=== PATIENT | male | born 1955 | race Caucasian/White ===

== ENCOUNTER 2017-03-10 22:03 | Emergency (ER) | payer BC ==
[~2017-03-10] VITALS: Ht 165.1 cm; Wt 68.2 kg
[~2017-03-10 22:03] MED LIST: ASCA500 PO; ASPI81TA21 PO; CALC600T14 PO; CHOL100027 PO; COENZYME PO; FISHOIL PO; GLUC750C4 PO; MULTTAB58 PO; SENN-63 PO; [UNRECOGNIZED DRUG - OTHER] PO; alpha-lipoic acid PO
[2017-03-10 22:09] VITALS: TEMP 36.6; Ht 165.1 cm; Wt 68.2 kg
--- NOTE | 2017-03-10 23:06 | EMERGENCY ROOM VISIT NOTE ---
History Report prepared by Yayo: Mo Pedersen Under the Supervision of: Dr. Angelica Joyner D.O. First contact with patient: 22:14 Chief Complaint: HEAD INJURY (MINOR) Stated Complaint: HEAD INJURY/LACERATION History of Present Illness The patient is a 61 year old male who presents to the Emergency Room with complaints of a sudden syncopal episode that occurred prior to arrival. He rates his pain as a 1/10 in severity. The patient states that he was in the hot tub and got out to dry off. He states that he felt lightheaded while he was putting a towel on, which eventually caused him to experience a syncopal episode. The patient states that he hit his head on concrete. He states that the episode was short and he was able to understand where he was following the incident. The patient reports that he relaxed and drank a couple glasses of water following the episode. The patient states that he has experienced symptoms similar to his current situation. He states has history of low blood pressure, which caused his history of syncopal episodes. He states that his last tetanus shot was three years ago. The patient states that his last blood pressure was 112/64. The patient denies seizure like activities, numbness or tingling in his legs, nausea, headache, leg injury, hip injury, medication change, and unusual activities. Patient had no symptoms while sitting in the hot tub not recently ill. Denies at any other pain or trauma secondary to the event. Patient feels back to his normal state of health now with the exception of small amount of pain around the laceration on his head. Source of History: patient Onset: prior to arrival Position: other (global) Symptom Intensity: 1/10 Quality: other (LOC) Timing: other (sudden) Associated Symptoms: No headache, No nausea, No numbness Review of Systems See HPI for pertinent positives & negatives. A total of 10 systems reviewed and were otherwise negative. Past Medical & Surgical Surgical Problems: (1) H/O cervical spine surgery (2) H/O prostatectomy Family History Diabetes mellitus FHx: cancer Social History Smoking Status: Never Smoker Alcohol Use: occasionally Drug Use: none Marital Status: Housing Status: lives with family Occupation Status: employed Current/Historical Medications Scheduled Ascorbic Acid (Ascorbic Acid), 1,500 MG PO DAILY Aspirin Enteric Coated (Ecotrin Or Generic), 81 MG PO DAILY Calcium Carbonate (Calcium), 600 MG PO DAILY Cholecalciferol (Vitamin D 1000 Unit), 1,000 INTER.UNIT PO DAILY Coenzyme Q10 (Ubidecarenone) (Coq-10), 200 MG PO DAILY Bpribkprkqn-Exesuoszvqy-Bru C- (Glucosamine Chondroitin), 2 TABS PO DAILY Multiple Vitamin (Multivitamin), 1 TAB PO DAILY [alpha-lipoic acid], 50 MG PO DAILY Allergies Coded Allergies: No Known Allergies (Unverified , 03/11/17) Physical Exam Vital Signs Date Time Temp Pulse Resp B/P (MAP) Pulse Ox O2 Delivery O2 Flow Rate FiO2 03/11/17 00:19 78 16 118/63 98 03/10/17 23:54 74 16 123/71 99 Room Air 03/10/17 22:09 36.6 76 18 121/80 98 Room Air Physical Exam GENERAL: alert, well appearing, well nourished, no distress, non-toxic EYE EXAM: normal conjunctiva, PERRL and EOM's grossly intact OROPHARYNX: no exudate, no erythema, lips, buccal mucosa, and tongue normal and mucous membranes are moist HEAD: Stellate laceration to the superior occipital region. Nontender. No hemotympanum. NECK: supple, no nuchal rigidity, no adenopathy, non-tender. No signs of trauma. LUNGS: Clear to auscultation. Normal chest wall mechanics HEART: no murmurs, S1 normal and S2 normal ABDOMEN: No signs of trauma. abdomen soft, non-tender, normo-active bowel sounds , no masses, no rebound or guarding. BACK: No signs of trauma. Back is symmetrical on inspection and there is no deformity, no stepoff, no midline tenderness, no CVA tenderness. PELVIS: stable. SKIN: no rashes and no bruising UPPER EXTREMITIES: upper extremities are grossly normal. LOWER EXTREMITIES: No pitting edema. NEURO EXAM: Normal sensorium, cranial nerves II-XII grossly intact, normal speech, no gross weakness of arms, no gross weakness of legs. Gross sensation intact. Medical Decision & Procedures ER Provider Diagnostic Interpretation: CT:Per my review, radiologist interpretation. CT C SPINE No acute fracture or malalignment. Surgical and degenerative. Old C2 fracture. Intact fusion hardware in the upper cervical spine. Radiologist: Heather Loomis M.D. CT HEAD: No intracranial hemorrhage or skull fracture. Fixation hardware in the upper cervical spine. Radiologist: Heather Loomis M.D. Medications Administered Medications (Trade) Dose Ordered Sig/Kim Route Start Time Stop Time Status Last Admin Dose Admin Lidocaine/ Epinephrine (Xylocaine/Epine 1% Inj) 20 ml STK-MED ONCE .ROUTE 03/10/17 23:47 03/10/17 23:48 DC 03/10/17 23:49 20 ML Procedure Location: upper occipital region Total length: 6 cm Complexity: stellate Verbal consent was obtained after the risks and benefits were explained, including but not limited to bleeding, scarring, infection, pain, and bone/joint /nerve damage. At this time, the risks of the procedure are less than the risks of NOT performing the procedure. A time out was taken and the correct patient and site identified. The skin was prepped with betadine. The target area was anesthetized with 5 ml of 1% lidocaine without epinephrine. Copious irrigation was performed using sterile normal saline. The skin was re-prepped with betadine and a sterile field set. The wound was explored for foreign bodies and none found. Examination revealed no injury to deep structures such as tendons, bone, or significant blood vessels. Debridement was not performed. The wound edges were approximated using 6 robbi. Hemostasis and excellent approximation was achieved. Antibacterial ointment and a sterile dressing applied. Detailed wound care instructions and signs and symptoms of infection reviewed with the patient. No complications and the patient tolerated the procedure well. ECG Indication: syncope Rate (beats per minute): 62 Rhythm: normal sinus Findings: no acute ischemic change, other (Normal axis, normal intervals, erratic baseline) ED Course 2245: The patient was evaluated in room A10. A complete history and physical exam was performed. 2347: Ordered Lidocaine/Epinephrine 20 ml IV. 2348: I performed a laceration repair. See procedure notes for further detail. 2355: Upon reevaluation, the patient is feeling better. I discussed the findings and the treatment plan with the patient. He verbalizes agreement and understanding. The patient was discharged home. Medical Decision The differential diagnosis includes etiologies such as vasovagal event, infection, hypoglycemia, electrolyte abnormalities, cardiac sources, intracerebral event, toxicologic, neurologic, as well as others were entertained. Patient likely with vasovagal event secondary to warm hot tub water immediately standing up trying to get out of the tub. Isolated head injury, no other evidence of trauma noted, imaging reassuring. Patient well-appearing here ambulatory with steady gait, vital signs stable. Doubt additional occult traumatic injury, doubt dysrhythmia, ACS, dissection, PE, tamponade, bacteremia/ sepsis, AAA, CVA, subarachnoid hemorrhage. Medication Reconcilliation Current Medication List: was personally reviewed by me Blood Pressure Screening Patient's blood pressure: Elevated blood pressure Blood pressure disposition: Elevated BP felt to be situational Impression Primary Impression: Closed head injury Additional Impressions: Syncope Laceration Scribe Attestation The scribe's documentation has been prepared under my direction and personally reviewed by me in its entirety. I confirm that the note above accurately reflects all work, treatment, procedures, and medical decision making performed by me. Departure Information Dispostion Home / Self-Care Referrals Leonidas Romero M.D. (MEDICAL) (PCP) Forms HOME CARE DOCUMENTATION FORM, IMPORTANT VISIT INFORMATION Patient Instructions My [facility] Tempronics Additional Instructions Please have the robbi removed in 7 days. Please drink plenty of water and be cautious when getting out of the hot tub too quickly. Please eat regularly. If you have any worsening headaches, dizziness, vision changes, vomiting, fevers , redness/drainage from the wound, neck/back pain, or you have any other new or concerning symptoms, please return to the emergency room. Problem Qualifiers Primary Impression: Closed head injury Encounter type: initial encounter Qualified Codes: S09.90XA - Unspecified injury of head, initial encounter Additional Impressions: Syncope Syncope type: vasovagal syncope Qualified Codes: R55 - Syncope and collapse
[2017-03-10] MEDS ORDERED: LIDOCAINE/EPINEPHRINE 1% 20 ML VIAL ONE (23:47)
[2017-03-11] MEDS ORDERED: ASCO500T16 PO (00:15)
[2017-03-11] MEDS ORDERED: CALC-393 PO (00:17)
[2017-03-11 00:19] VITALS: BP 118/63; PULSE 78; O2SAT 98
[2017-03-11] MEDS ORDERED: GLUCTAB7 PO (00:19)
[2017-03-11] MEDS ORDERED: COEN100C11 PO (00:20)
--- NOTE | 2017-03-11 06:40 | DIAGNOSTIC IMAGING REPORT ---
CT OF THE CERVICAL SPINE CLINICAL HISTORY: Neck pain status post trauma COMPARISON STUDY: 09/06/2010 CT DOSE: TECHNIQUE: CT scan of the cervical spine was performed from the skull base to the thoracic inlet. Images are reviewed in the axial, sagittal, and coronal planes. IV contrast was not administered for this examination. A dose lowering technique was utilized adhering to the principles of ALARA. FINDINGS: The visualized portions of the lung apices reveal no evidence of pneumothorax. The prevertebral soft tissues are normal. No acute fractures or traumatic subluxations are visualized. There is an old healed C2 fracture. There are postsurgical changes present at the C1-2 level. There are multilevel degenerative changes. IMPRESSION: 1. No evidence of acute fracture or traumatic subluxation 2. Old C2 fracture. Postsurgical changes at the C1-2 level. Electronically signed by: Aaron Sanchez M.D. 03/11/2017 6:39 AM Dictated Date/Time: 03/11/2017 6:37 AM
--- NOTE | 2017-03-11 06:53 | DIAGNOSTIC IMAGING REPORT ---
HEAD WITHOUT CONTRAST (CT) CLINICAL HISTORY: 61 years-old Male with trauma, syncope. Acute head trauma following a syncopal event with laceration of the posterior scalp TECHNIQUE: Multiple axial CT images of the head were obtained without contrast. A dose lowering technique was utilized adhering to the principles of ALARA. CT DOSE: 1129.31 mGy.cm COMPARISON: CT head 09/06/2010. FINDINGS: No acute intracranial hemorrhage, midline shift, mass, large territorial ischemia or abnormal extra-axial collection. Senescent calcifications involve the globus pallidi bilaterally. The calvarium is intact. The paranasal sinuses, mastoid air cells, and middle ear cavities are clear. Mild soft tissue swelling with small laceration involves the right occipital scalp. No opaque foreign body. Fusion hardware of the upper cervical spine is partially imaged. Linear lucency of the right occiput seen on image 18 is unchanged from prior study dated 09/06/2010 without definite calvarial fracture seen. IMPRESSION: 1. No acute intracranial abnormality. The above report was generated using voice recognition software. It may contain grammatical, syntax or spelling errors. Electronically signed by: Dave Dorado M.D. 03/11/2017 6:52 AM Dictated Date/Time: 03/11/2017 6:34 AM
== END 2017-03-11 00:20 | disposition home or self-care (01) ==
LOC: C.EDB 22:04 → C.EDA 03-11 00:20
DX: S09.90XA Unspecified injury of head, initial encounter (principal); R55 Syncope and collapse; W19.XXXA Unspecified fall, initial encounter; Z83.3 Family history of diabetes mellitus; Z79.82 Long term (current) use of aspirin

== ENCOUNTER 2021-02-18 08:26 | Observation (INO) ==
--- NOTE | 2021-01-15 16:19 | PAT Medication Instructions ---
Medication Instructions Date of Service January 15, 2021 Home Medications Dha Otc 1 tab PO QAM alpha lipoic acid 50 mg capsule 50 mg PO QAM ascorbic acid (vitamin C) 1,000 mg tablet (Vitamin C) 2,000 mg PO QAM calcium carbonate 600 mg calcium (1,500 mg) tablet (Calcium) 600 mg PO QAM coQ10 (ubiquinol) 200 mg capsule 200 mg PO QAM coffee extract 50 mg-phosphatidyl serine 50 mg chewable tablet (Neuriva Original) 1 tab PO QAM glucosamine sulf dipot chlr,msm,chond 550 mg-C 30 mg-ramiro 1 mg capsule (Glucosamine Chondroitin) 2 cap PO QAM ibuprofen 200 mg tablet 400 mg PO Q6H PRN multivitamin 1 tab PO QAM omega-3 fatty acids-fish oil 684 mg-1,200 mg capsule,delayed release 1 cap PO QAM ASK your surgeon for instructions ibuprofen 200 mg tablet 400 mg PO Q6H PRN STOP taking 2 weeks before surgery (or as soon as possible if surgery is within 2 weeks) Dha Otc 1 tab PO QAM alpha lipoic acid 50 mg capsule 50 mg PO QAM coQ10 (ubiquinol) 200 mg capsule 200 mg PO QAM coffee extract 50 mg-phosphatidyl serine 50 mg chewable tablet (Neuriva Original) 1 tab PO QAM glucosamine sulf dipot chlr,msm,chond 550 mg-C 30 mg-ramiro 1 mg capsule (Glucosamine Chondroitin) 2 cap PO QAM omega-3 fatty acids-fish oil 684 mg-1,200 mg capsule,delayed release 1 cap PO QAM DO NOT take the morning of surgery ascorbic acid (vitamin C) 1,000 mg tablet (Vitamin C) 2,000 mg PO QAM calcium carbonate 600 mg calcium (1,500 mg) tablet (Calcium) 600 mg PO QAM multivitamin 1 tab PO QAM Other Notes If you have any questions please call us at [phone] or [phone] or [phone] or [phone]
--- NOTE | 2021-01-19 11:32 | Anesthesiology Consultation ---
Date of Service January 19, 2021 Assessment & Plan (1) Encounter for pre-operative examination: Chart Review Chart Review: Acceptable Risk for Surgery (pending surgeon ordered PCP clearance and preop Covid testing results ) and Patient seen in Pre Admission Testing Awaiting surgeon ordered PCP clearance 01/26/21 Per PAT appt on 01/19/21, pt resides in [facility]. No recent travel. Works at [employer] wears mask per CDC guidelines. Pt is vaccinated for Covid. No known Covid positive contacts or Covid related symptoms. Patient denies any known Covid infection in the past 90 days. Preop Covid testing scheduled 02/16/21= will await results. Educated on importance of self quarantining, social distancing and wearing mask in public both for the patient after Covid testing done History Surgery Operation Date: 02/18/21 10:50 Proposed Procedures p Right Total Hip Arthroplasty with Dual Mobility Cup - Ilan Ford MD Height/Weight Height: 5 ft 5 in Weight: 65 kg Allergies Allergy/AdvReac Type Severity Reaction Status Date / Time No Known Allergies Allergy Verified 01/13/21 15:09 Medications Home Medications Medication Instructions Recorded Confirmed Last Taken Dha Otc 1 tab PO QAM 01/13/21 01/13/21 Unknown alpha lipoic acid 50 mg capsule 50 mg PO QAM 01/13/21 01/13/21 Unknown ascorbic acid (vitamin C) 1,000 mg 2,000 mg PO QAM 01/13/21 01/13/21 Unknown tablet (Vitamin C) calcium carbonate 600 mg calcium 600 mg PO QAM 01/13/21 01/13/21 Unknown (1,500 mg) tablet (Calcium) coQ10 (ubiquinol) 200 mg capsule 200 mg PO QAM 01/13/21 01/13/21 Unknown coffee extract 50 mg-phosphatidyl 1 tab PO QAM 01/13/21 01/13/21 Unknown serine 50 mg chewable tablet (Neuriva Original) glucosamine sulf dipot 2 cap PO QAM 01/13/21 01/13/21 Unknown chlr,msm,chond 550 mg-C 30 mg-ramiro 1 mg capsule (Glucosamine Chondroitin) ibuprofen 200 mg tablet 400 mg PO Q6H PRN 01/13/21 01/13/21 Unknown multivitamin 1 tab PO QAM 01/13/21 01/13/21 Unknown omega-3 fatty acids-fish oil 684 1 cap PO QAM 01/13/21 01/13/21 Unknown mg-1,200 mg capsule,delayed release Past Medical History Medical History History of hypotension Pt was on pressor medication in the past due to hypotension- caused agitation - medication d/c'ed Pt is stable - stays well hydrated and wears compression stockings History of prostate cancer Dx'ed 2010- s/p prostatectomy- no chemo/XRT No issues currently Osteoporosis Exercise / Class Metabolic Activity II 4-5 Yardwork/Stairs/Walk up hill (one flight of stairs - no chest pain or SOB- pt does minimum of 10,000 steps daily ) Past Family History Family History Grandfather (Paternal) Family history of diabetes mellitus Past Surgical History Surgical History History of anesthesia reaction HISTORY LOW BP History of cardiac cath 11/2011 HAYES GUNDERSON? NO STENTS NEEDED-DONE TO INVESTIGATE HX HYPOTENSION History of colonoscopy History of neck surgery 2010 S/P FRACTURED NECK History of prostatectomy 2010 History of tonsillectomy History of tooth extraction WISDOM TEETH Past Anesthesia History No Hx of Anesthesia Complications (with exception to hypotension - had to stay overnight with prostate surgery ) and No Family Hx of Anesthesia Complications History of PONV No Hx of PONV and No Hx of Motion Sickness Social History Smoking Status: Former smoker Do You Dip or Chew Tobacco: No Smoking End Date: QUIT AGE 25 Hx Alcohol Use: Yes Alcohol type: beer alcohol intake frequency: a few times a week Hx Substance Use: No Review of Systems Patient denies chest pain, shortness of breath, dyspnea on exertion, reflux, cough, wheezing, palpitations. No hx of seizures, stroke, OH, apnea/snoring. No hx of blood clots or blood transfusions Physical Exam Vital Signs VITALS BP 134/76 P 58 TEMP 98.6 SP02 99% RESP 16 Constitutional no acute distress ENMT Mouth: no TMJ clicking Thyromental Distance: > or= 3.5 Finger Breadths (3.5) Mallampati Class: II Missing molars Neck neck extension not limited Respiratory normal respiratory effort; no respiratory distress Auscultation: lungs clear to auscultation bilaterally; no wheezes Cardiovascular Rate/Rhythm: regular rate and regular rhythm Heart Sounds: no murmur Vessels: no carotid bruit Musculoskeletal Spine: no pain with cervical ROM Extremities: extremities normal to inspection Psychiatric Orientation: alert Lab Results Anesthesia Preop Results Results Anesthesia Widget: WBC 5.87 K/uL (4.8-10.8) 01/19/21 Hgb 15.2 g/dL (14.0-18.0) 01/19/21 Hct 46.7 % (42-52) 01/19/21 Plt 261 K/uL (130-400) 01/19/21 Na 144 mmol/L (136-145) 01/19/21 K 4.8 mmol/L (3.5-5.1) 01/19/21 Cl 112 mmol/L (98-107) H 01/19/21 CO2 28 mmol/L (21-32) 01/19/21 BUN 19 mg/dl (7-18) H 01/19/21 Creat 0.85 mg/dl (0.6-1.4) 01/19/21 Glucose Level 87 mg/dl (70-99) 01/19/21 PT 9.8 Seconds (9.0-12.0) 01/19/21 PTT 26.6 Seconds (21.0-31.0) 01/19/21 INR 1.0 (0.9-1.1) 01/19/21 Urine Color Yellow 01/19/21 Urine Appearance Clear (Clear) 01/19/21 Urine pH 7.5 (4.5-7.5) 01/19/21 Urine Specific [place] 1.008 (1.000-1.030) 01/19/21 Urine Protein Negative (Negative) 01/19/21 Urine Glucose (UA) Negative (Negative) 01/19/21 Urine Ketones Negative (Negative) 01/19/21 Urine Blood Negative (Negative) 01/19/21 Urine Nitrite Negative (Negative) 01/19/21 Urine Bilirubin Negative (Negative) 01/19/21 Urine Urobilinogen Negative (Negative) 01/19/21 Urine Leukocyte Esterase Negative (Negative) 01/19/21 Blood Type B Positive 01/19/21 Antibody Screen NEGATIVE 01/19/21 Testing Electrocardiogram Date: 01/19/21 Findings: + SB @ (58bpm) Otherwise normal EKG per cardio. Chest X-Ray Date: 01/19/21 Findings: + NAD There is a stable 6 mm radiopaque density within the left anterior chest wall.
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
[~2021-02-18 08:26] MED LIST changes: -ASCA500 PO; -ASPI81TA21 PO; +BUPIVACAINE 0.5 % 5 MG/1 ML PF 10ML VIAL ONE; -CALC600T14 PO; -CHOL100027 PO; -COENZYME PO; -FISHOIL PO; -GLUC750C4 PO; +LR 500ML BOLUS, THEN 15ML/HR IV SCH; +LR 60ML/HR IV SCH; -MULTTAB58 PO; +ROPIVACAINE 0.5% HCL/PF 150 MG, BUPIVACAINE 0.75% MPF 20 ML, EPINEPHrine 0.15 MG, Ketor... INFIL SCH; -SENN-63 PO; +TRANEXAMIC ACID 1,000 MG **IV Pre-op IV SCH; -[UNRECOGNIZED DRUG - OTHER] PO; -alpha-lipoic acid PO; +ceFAZolin 2000MG 2,000 MG/15 ML SYR IV SCH
--- NOTE | 2021-02-18 08:31 | History & Physical Bridge Note ---
Date of Service February 18, 2021 History & Physical Bridge Note I have examined the patient, reviewed the History & Physical and in the interval since the performance of the History & Physical I have noted the following changes of clinical significance:consent obtained/site verified/covid screen negative. no changes noted
--- NOTE | 2021-02-18 09:30 | History and Physical Report ---
HISTORY AND PHYSICAL UPDATE DATE OF ADMISSION: 02/18/2021 CHIEF COMPLAINT: Right hip pain. HISTORY OF PRESENT ILLNESS: A 65-year-old male who presents for right hip replacement, has severe disease. Please see previous H and P that is barely over 30 days old. PAST MEDICAL HISTORY: Remarkable for osteoarthritis, history of prostate cancer. PAST SURGICAL HISTORY: Remarkable for prostatectomy in 2020, neck surgery, cervical corpectomy and fusion. ALLERGIES: None. CURRENT MEDICATIONS: Calcium, CoQ-10, glucosamine, alpha lipoic acid, multivitamin. FAMILY HISTORY: Noncontributory. SOCIAL HISTORY: Reveals he is . No tobacco use, quit in 1974. Alcohol use socially. REVIEW OF SYSTEMS: Ten points are without change. PHYSICAL EXAMINATION: VITAL SIGNS: Stable. Height is 165 cm, his weight is 65 kilograms. His BMI is 23.9. He is afebrile. EYES: PERRLA, EOMI. Nares patent. HEART: Regular rate and rhythm. ABDOMEN: Soft, nontender. EXTREMITIES: Right hip reveals significant external rotation contracture and flexion to about 80 degrees. Neurovascular check of femoral sciatic nerve is normal. Leg is short. Neurovascular check again is normal. X-RAYS: Reveal severe disease of his right hip with almost a pseudofusion. IMPRESSION: Right hip end-stage degenerative joint disease, avascular necrosis. PLAN: Proceed with total hip replacement. Appropriate consent is obtained. Job ID: [id number] [facility]
[2021-02-18] MEDS ORDERED: MIDAZOLAM HCL 1 MG/ML 2ML VIAL ONE (09:43)
[2021-02-18] MEDS ORDERED: ONDANSETRON INJ 2 MG/ML 2 ML VIAL IV PRN ×2 (09:55→13:47)
[2021-02-18] MEDS ORDERED: fentaNYL citrate 100 MCG/2 ML VIAL IV PRN (09:55)
[2021-02-18] MEDS ORDERED: ATROPINE SULFATE 0.1 MG/ML 10ML SYR IV PRN (09:55)
[2021-02-18] MEDS ORDERED: HYDROmorphone INJ 2 MG/ML SYR/VIAL IV PRN (09:55)
[2021-02-18] MEDS ORDERED: ePHEDrine sulfate 50 MG/ML AMP IV PRN (09:55)
[2021-02-18] MEDS ORDERED: ORTHO JOINT ANESTHETIC ONE (10:33)
[2021-02-18] MEDS ORDERED: ePHEDrine sulfate 50 MG/ML SYR ONE (11:34)
[2021-02-18] MEDS ORDERED: PROPOFOL IV EMULSION 10 MG/ML 20 ML VIAL IV ONE (11:37)
[2021-02-18] MEDS ORDERED: PHENYLEPHRINE 100MCG/ML 5ML SYR ONE (12:02)
--- NOTE | 2021-02-18 12:19 | Post Operative Brief Note ---
Immediate Post Op Note v1 Date of Surgery February 18, 2021 Pre & Post Diagnosis Operation Date: 02/18/21 10:40 Pre-Op Diagnosis: Degenerative joint disease of right hip; Avascular necrosis Post-Op Diagnosis: Degenerative joint disease of right hip; Avascular necrosis I identified the patient and participated in the time-out.: Yes Procedure Operation Date: 02/18/21 10:40 Actual Procedures p Right Total Hip Arthroplasty, Uncemented(Right) - Ilan Ford MD Surgeon Ilan Ford MD Actuarial Science Teacher Marce Estimated Blood Loss 200 Findings Consistent with Post-Op Diagnosis
--- NOTE | 2021-02-18 12:29 | Operative Report ---
Post Operative Report Pre & Post Diagnosis Operation Date: 02/18/21 10:40 Pre-Op Diagnosis: Degenerative joint disease of right hip; Avascular necrosis Post-Op Diagnosis: Degenerative joint disease of right hip; Avascular necrosis I identified the patient and participated in the time-out.: Yes Procedure Operation Date: 02/18/21 10:40 Actual Procedures p Right Total Hip Arthroplasty, Uncemented(Right) - Ilan Ford MD Surgeon ALEJANDRO Ford MD Stock Patcher Marce CASTELLANO Estimated Blood Loss 200 Findings Consistent with Post-Op Diagnosis see operative report Specimens see operative report Drains none Complications none Disposition Accompanied Patient To Recovery: Yes Indications This 65-year-old male presented to the office with complaints of severe right hip pain. He had tried conservative care measures without improvement. He elected to proceed with surgical invention after being educated about potential risks and outcomes. Preoperative imaging was obtained. Description of Procedure Patient was administered a spinal anesthetic and then taken to the operating room where he was given sedation. He was prepped and draped in the usual sterile fashion. Please see Dr. Ford's operative report for specifics of the procedure. I was present for the entire case from initial patient positioning through final wound closure. Assistance was provided in tissue retraction, hemostasis, trial implant placement, final implant placement, and final wound closure. Patient was taken to the recovery room in satisfactory condition. I attest to the content of the Intraoperative Record and any orders documented therein. Any exceptions are noted below.
[2021-02-18] MEDS ORDERED: VANCOMYCIN HCL 1,000 MG in SODIUM CHLORIDE 0.9% 250 ML IV SCH (12:45)
--- NOTE | 2021-02-18 12:59 | Progress Notes ---
DATE OF SERVICE: 02/18/2021 Postop check status post right total hip replacement. The patient is resting comfortable. Denies any chest pain, shortness of breath, fever, chills, nause a, vomiting or headache. Vital signs are stable. He is afebrile. Neurovascular check limited by spinal. Postop x-rays look excellent. ASSESSMENT: Status post right total hip replacement. Continue postoperative care pathway. Pato salas discharge tomorrow if he does well overnight. Job ID: [id number]
--- NOTE | 2021-02-18 13:12 | Operative Report (OR) ---
DATE OF PROCEDURE: 02/18/2021 SURGEON: Ilan Ford MD. PICK AND SHOVEL MAN: King Zheng PA-C; no resident or fellow available. PREOPERATIVE DIAGNOSIS: Osteoarthritis with avascular necrosis, right hip, severe deformity. POSTOPERATIVE DIAGNOSIS: Osteoarthritis with avascular necrosis, right hip, severe deformity. OPERATION PERFORMED: Noncemented right total hip replacement. SUMMARY OF IMPLANTS: Size 50 shell sector cup, 32 x 50 +4 neutral liner, 6.5 x 20 screw, 3 high offset Tri-Lock, 32+9 ceramic head. ESTIMATED BLOOD LOSS: 200 mL. CRYSTALLOID: Per anesthesia. BONE PATHOLOGY: Pending. DVT prophylaxis per protocol. PERIOPERATIVE SITUATION: Medically cleared male with intractable hip pain with severe deformity by x-rays, almost has a fused hip and fixed in external rotation, flexes to about 80 degrees. Neurovascular check of femoral sciatic nerve is relatively normal. Leg length is short about a centimeter.Consent for possible dual mobility cup discussed and obtained. DESCRIPTION OF PROCEDURE: The patient was appropriately identified, site verified, consent verified. Antibiotics were confirmed as being given. The right lower extremity was prepped and draped in usual routine fashion with the patient in the left lateral decubitus position. Posterior approach to the hip was then carried out. Sharp dissection carried through skin, blunt dissection down to the fascia. The IT band was then split as well as the gluteus onel. Retractors were then placed. Care was taken to protect the sciatic nerve. The short external rotators were released. The capsule was T'ed. The hip was dislocated. The head was severely deformed. It was resected. There was marked deformity and osteophytes about the acetabulum. These were resected appropriately. Serial reaming carried up to a size 50, and a 50 sectotr shell acetabular cup impacted into appropriate position and secured with additional 6.5 x 20 screw with excellent purchase. I palpated posteriorly and the tip of the screw was barely palpable. The wound was then irrigated. The trial liner was then seated. Hip was then flexed, internally rotated. Proximal femur prepared with boxing instructor, canal finder, lateralizing rasp and serial broaching up to a 3. Trial reductions with a +9 screw gave some slight anterior impingement, so it was elected to go with a +4 liner and a lateralized high offset implant. Once that was done, everything was excellent. The stability was excellent. The hip was then dislocated. All trial elements were removed. The hole eliminator seated, the +4 acetabular liner seated, the stem seated, the neck seated, head seated; everything reduced well, there was excellent leg length, excellent stability. All permanent pieces were then securely inserted including a ceramic head and once this was done, the wound was irrigated and closed with #2 Vicryl, 2-0 Vicryl and stainless steel clips. The closure included the capsule and the short external rotators as well as the IT band, gluteus onel fascia, deep and superficial fat, and skin. Appropriate dressing applied. The patient was transferred to recovery room in satisfactory condition, having tolerated the procedure well. Dual mobility cup not indicated based on stability achieved and neck lengths needed. Job ID: [id number] [facility]
--- NOTE | 2021-02-18 13:13 | XRay Report ---
AP PELVIS History: Right total hip arthroplasty. Degenerative arthritis. Postop. FINDINGS: The patient is status post a right total hip arthroplasty. The hardware is intact. No fract ure or dislocation. Skin robbi are in place. IMPRESSION: Right total hip arthroplasty. No evidence for hardware complication ACT 112: Negative or not required by law. Electronically signed by: Bennett De La Cruz M.D. 02/18/2021 1:12 PM
--- NOTE | 2021-02-18 13:17 | Discharge Summary (DS) ---
DATE OF ADMISSION: 02/18/2021 DATE OF DISCHARGE: 02/19/2021 CHIEF COMPLAINT: Right hip pain. HISTORY OF PRESENT ILLNESS: The patient underwent elective right total hip replacement for severe de formity secondary to AVN collapse and secondary osteoarthritis. He had significant stiffness. He masters d significant leg length inequality. PAST MEDICAL AND PAST SURGICAL HISTORY: Remarkable for no major medical illnesses. He has osteoarth ritis, history of remote prostate cancer, prostatectomy was in 2020, neck surgery, cervical corpectom y and fusion. ALLERGIES: None. CURRENT MEDICATIONS: Include calcium, glucosamine, alpha lipoic acid, multivitamin. FAMILY HISTORY: Noncontributory. SOCIAL HISTORY: Reveals he is . Quit smoking in 1974. Social alcohol only. Postoperative x-rays look excellent. ASSESSMENT: Doing well status post right total hip replacement. Continue with postoperative care pa thway. Discharge on Coumadin per protocol. Will follow up in 2 weeks for staple removal. Job ID: [id number]
--- NOTE | 2021-02-18 13:42 | Anesthesiology Progress Note ---
Date of Service February 18, 2021 Anesthesia Post Procedure Vital Signs Vital Signs: Temp Pulse Pulse Resp BP Pulse Ox 02/18/21 13:35 36.3 C L 55 L 13 108/70 100 02/18/21 13:25 36.3 C L 61 20 108/61 100 02/18/21 13:15 36.0 C L 49 L 16 102/66 100 02/18/21 13:05 36.0 C L 53 L 16 100/63 99 02/18/21 12:55 57 L 14 97/68 L 100 02/18/21 12:45 53 L 15 99/66 L 100 02/18/21 12:35 72 20 102/58 L 93 02/18/21 12:29 36.6 C 60 12 103/58 L 100 02/18/21 09:06 37.1 C 69 20 128/78 100 Transfer of Care Handoff Completed per policy Notes Mental Status: alert / awake / arousable and participated in evaluation Patient Amnestic to Procedure: Yes Nausea / Vomiting: adequately controlled Pain: adequately controlled Airway Patency, RR, SpO2: stable & adequate BP & HR: stable & adequate Hydration State: stable & adequate Anesthetic Complications: no major complications apparent and Pt Satisfied with anesthetic care
[2021-02-18] MEDS ORDERED: HYDROmorphone INJ 0.5 MG/0.5 ML SYR IV PRN (13:47)
[2021-02-18] MEDS ORDERED: NALOXONE HCL 0.4 MG/1 ML VIAL/CARP IV PRN (13:47)
[2021-02-18] MEDS ORDERED: diphenhydrAMINE 50 MG/ML VIAL IV PRN (13:47)
[2021-02-18] MEDS ORDERED: MAGNESIUM HYDROXIDE SUSP 30 ML UDC PO PRN (13:47)
[2021-02-18] MEDS ORDERED: ALUMINUM/MAGNESIUM SUSP 30 ML UDC PO PRN (13:47)
[2021-02-18] MEDS ORDERED: METOCLOPRAMIDE HCL INJ 5 MG/ML 2 ML VIAL IV PRN (13:47)
[2021-02-18] MEDS ORDERED: bisacodyL 10 MG SUPP PR PRN (13:47)
[2021-02-18] MEDS ORDERED: TAMSULOSIN HCL 0.4 MG CAP PO PRN (13:47)
[2021-02-18] MEDS ORDERED: ORTHO WARFARIN NOMOGRAM SCH (14:00)
[2021-02-18] MEDS: SODIUM CHLORIDE 0.9% 1000ML 1,000 ML IV SCH (15:11)
[2021-02-18] MEDS: KETOROLAC TROMETHAMINE 15 MG/ML VIAL IV SCH ×2 (15:14→20:08)
[2021-02-18] MEDS: ACETAMINOPHEN 500 MG TAB PO SCH ×2 (15:14→20:08)
[2021-02-18] MEDS ORDERED: WARFARIN SOD 5 MG TAB PO SCH (16:00)
[2021-02-18] MEDS: FERROUS GLUCONATE 324 MG TAB PO SCH (17:33)
[2021-02-18] MEDS: ASCORBIC ACID 500 MG TAB PO SCH (17:33)
[2021-02-18] MEDS: ceFAZolin 2000MG 2,000 MG/15 ML SYR IV SCH (17:44)
[2021-02-18] MEDS ORDERED: TRANEXAMIC ACID / 0.7% NACL 1,000 MG/100 ML BAG IV SCH (18:45)
[2021-02-18] MEDS: DOCUSATE SODIUM 100 MG CAP PO SCH (20:09)
[2021-02-18] MEDS ORDERED: SENNA 8.6 MG TAB PO SCH (21:00)
[2021-02-18] MEDS: oxyCODONE HCL IR 5 MG TAB (IMMEDIATE RELEASE) PO PRN (22:25)
[2021-02-19] MEDS: SODIUM CHLORIDE 0.9% 1000ML 1,000 ML IV SCH (00:01)
[2021-02-19] MEDS: ceFAZolin 2000MG 2,000 MG/15 ML SYR IV SCH (02:43)
[2021-02-19] MEDS: KETOROLAC TROMETHAMINE 15 MG/ML VIAL IV SCH ×3 (02:43→11:59)
[2021-02-19 06:02] LABS: Basophils # (auto) 0.01 K/uL (0-0.2); Basophils % (auto) 0.1 %; Eosinophils # (auto) 0.04 K/uL (0-0.5); Eosinophils % (auto) 0.5 %; Hematocrit (blood only) 36.9 % (42-52); Hemoglobin 11.8 g/dL (14.0-18.0); Immature Granulocytes # (auto) 0.02 K/uL (0.00-0.02); Immature Granulocytes % (auto) 0.2 %; Lymphocytes # (auto) 0.99 K/uL (1.2-3.4); Lymphocytes % (auto) 12.4 %; Mean Corpuscular Hemoglobin 29.3 pg (25-34); Mean Corpuscular Volume 91.6 fL (80-100); Mean Platelet Volume 9.4 fL (7.4-10.4); Monocytes # (auto) 0.84 K/uL (0.11-0.59); Monocytes % (auto) 10.5 %; Neutrophils # (auto) 6.11 K/uL (1.4-6.5); Neutrophils % (auto) 76.3 %; Platelet Count 193 K/uL (130-400); RDW Coefficient of Variation 13.8 % (11.5-14.5); RDW Standard Deviation 46.5 fL (36.4-46.3); Red Blood Count 4.03 M/uL (4.7-6.1); White Blood Count 8.01 K/uL (4.8-10.8)
[2021-02-19 06:08] LABS: INR 1.1 (0.9-1.1); Prothrombin Time 10.9 Seconds (9.0-12.0)
[2021-02-19] MEDS: ACETAMINOPHEN 500 MG TAB PO SCH (06:19)
[2021-02-19 06:33] LABS: BUN Creatinine Ratio 21.9 (10-20); Calcium 7.9 mg/dl (8.5-10.1); Creatinine Clr Calc Pharmacy 79.5 ml/min; Est GFR (Non-African American) 94.1 ml/min; Potassium 4.6 mmol/L (3.5-5.1)
--- NOTE | 2021-02-19 07:43 | Progress Notes ---
SUBJECTIVE: Followup of his right total hip replacement. He is doing well. He has been ambulatory last evening. He denies any chest pain, shortness of breath, fever, chills, nausea, vomiting or head ache. OBJECTIVE: Vital signs are stable. He is afebrile. Hematocrit stable at 36. INR 1.1. Electrolytes look good. ASSESSMENT: Doing well. PLAN: For discharge today after PT/OT, case management assessment. Discharge on 4 mg of Coumadin. Yanira jiménez INR on Tuesday. Job ID: [id number]
[2021-02-19] MEDS ORDERED: dexAMETHasone 10 MG in SYRINGE 0 ML IV SCH (08:00)
--- NOTE | 2021-02-19 08:45 | Orthopedic Progress Note ---
Date of Service February 19, 2021 Assessment & Plan (1) Status post total hip replacement, right: Plan: Patient's dressing was changed this morning by me. He may be discharged to home with outpatient services after he receives PT/OT here this morning. Total hip precautions were reviewed. Written discharge instructions were provided. Prescriptions for Percocet and Coumadin were sent to his [facility] pharmacy. Follow-up in the office in 2 weeks as scheduled for staple removal. Call the office with any other concerns. He will take Coumadin 4 mg over the weekend and have his blood rechecked on Tuesday. Admission and Anticipated Discharge Date Admission Date: February 18, 2021 Subjective Patient is seen in his room this morning. States he did very well overnight. He has no pain at this point. He did take 2 Percocet earlier. He denies any numbness or tingling. No chest pain, shortness of breath, nausea, vomiting, or abdominal pain. He has been out of bed and has ambulated in his room. Review of Systems Review of Systems: Unchanged from yesterday. Physical Exam Physical Exam: General: Well-developed, well-nourished, white male, in no acute distress. Laying in bed. Alert and oriented. Conversive. Skin: Warm dry with good turgor. No rashes. Patient has an intact postsurgical dressing on his right hip. Upon removal, there is scant drainage on the dressing. He has no active bleeding. Expected postoperative edema around his incision. No edema. Noy are intact. Wound edges are well approximated. Musculoskeletal: Patient has intact motor function to the right leg. He is able to do a straight leg raise. Intact motor function to his hip, knee, and ankle. Neurologic: Gross sensation is intact across the right leg by soft touch. Peripheral pulses are 2+. Results & Data ([facility]) Vital Signs (Past 12 Hours) Vital Signs Temp Pulse Resp BP BP Pulse Ox 02/19/21 07:45 36.8 C 75 17 204/86 H 94 02/19/21 03:25 36.6 C 57 L 18 94/60 L 99 02/18/21 22:56 37.2 C 63 18 98/84 L 95 Laboratory Results H&H obtained today is 11.8 and 36.9. INR is 1.1. PRP shows a sodium 143, potassium 4.6, chloride 117, BUN of 17, and creatinine of 0.78. Glucose is 104.
[2021-02-19] MEDS ORDERED: MULTIVITAMIN TAB PO SCH (09:00)
[2021-02-19] MEDS: DOCUSATE SODIUM 100 MG CAP PO SCH (10:00)
[2021-02-19] MEDS: FERROUS GLUCONATE 324 MG TAB PO SCH (10:00)
[2021-02-19] MEDS: ASCORBIC ACID 500 MG TAB PO SCH (10:00)
[2021-02-19] MEDS ORDERED: WARFARIN SOD 5 MG TAB PO ONE (10:15)
[2021-02-19] MEDS: oxyCODONE HCL IR 5 MG TAB (IMMEDIATE RELEASE) PO PRN (11:23)
== END 2021-02-19 13:30 | disposition home or self-care (01) ==
LOC: ASU 08:26 → 3E 08:26